=== PATIENT | female | born 1950 | race Caucasian/White ===

== ENCOUNTER → 2016-06-18 | Outpatient (CLI) | payer OTHER ==
[~2016-06-18] MED LIST: ALBU0.084 NEB; ALLO300T2 PO; ATOR1TAB PO; BACL10TA PO; CHOL50007 PO; CLON0.1T PO; CLOP75TA28 PO; DOCU-137 PO; DONE10TA37 PO; GLIP-115 PO; HCTZ25T OR; LOSA100T27 PO; LUBI8CAP4 PO; MET50T PO; METF-312 PO; MONT10TA23 PO; NIFE60TA59 PO; POTA10TA79 PO
[2016-06-18 15:31] LABS: Basophils # (auto) 0 uL; DEFINITIVE VIEW TRANSMISSION; Eosinophils # (auto) 0 uL; Eosinophils % (auto) 0.3 % (0.0-7.0); Neutrophils # (auto) 10.9 uL; Red Cell Distribution Width 16.8 % (11.6-16.0); White Blood Cell 14.3 10^3/uL (4.4-10.8)
[2016-06-18 15:36] LABS: Basophils % (auto) 0.3 % (0.0-2.0); Hematocrit 39.4 % (36.0-46.0); Hemoglobin 12.6 g/dL (12.2-16.2); Lymphocytes # (auto) 2.5 uL; Lymphocytes % (auto) 17.5 % (10.0-50.0); Mean Corpuscular Hemoglobin 22.4 pg (28.0-32.0); Mean Corpuscular Hgb Conc. 31.9 g/dL (32.0-36.0); Mean Corpuscular Volume 70.3 fL (80.0-100.0); Mean Platelet Volume 8.6 fL (7.4-10.4); Monocytes # (auto) 0.8 uL; Monocytes % (auto) 5.5 % (0.0-12.0); Neutrophils % (auto) 76.4 % (37.0-80.0); Platelet Count (auto) 406 10^3/uL (140-450)
[2016-06-18 15:45] LABS: BUN/Creatinine Ratio 17.4; Calcium 9.8 mg/dL (8.5-10.1); Potassium 3.4 mmol/L (3.5-5.1)
[2016-06-18 16:11] LABS: INR 0.99 (0.9-1.15); Partial Thromboplastin Time 27.5 sec (22.64-33.71); Prothrombin Time 10.2 sec (9.37-12.3)
== END | disposition home or self-care (01) ==
LOC: LAB 14:47
PROVIDERS: ATTEND Obstetrics & Gynecology
DX: N39.0 Urinary tract infection, site not specified (principal); M79.89 Other specified soft tissue disorders; D53.8 Other specified nutritional anemias
CPT/HCPCS: 36415; 80048; 85025; 85610; 85730

== ENCOUNTER 2016-06-21 08:06 | Day surgery (SDC) | payer OTHER ==
[~2016-06-21] VITALS: Ht 154.9 cm; Wt 74.8 kg
[2016-06-21] MEDS ORDERED: ceFAZolin 1GM/50ML D5W 50 ML IV ONE (09:48)
[2016-06-21] MEDS ORDERED: ALBUTEROL SULF 2.5 MG/0.5ML(0.5%) NEB SOLN NEB ONE (10:45)
[2016-06-21] MEDS ORDERED: ALBUTEROL SULF 2.5 MG/0.5ML(0.5%) NEB SOLN ONE (10:45)
[2016-06-21] MEDS ORDERED: VASOPRESSIN 20 UNIT/ML ONE (10:52)
[2016-06-21] MEDS ORDERED: BUPIVACAINE 0.25% INJ 50ML VIAL ONE ×2 (10:52→11:10)
[2016-06-21] MEDS ORDERED: LIDOCAINE W/ EPINEPHRINE 1 % INJ 30ML ONE ×2 (10:52→11:59)
[2016-06-21] MEDS ORDERED: ceFAZolin 1GM VL ONE (10:52)
[2016-06-21] MEDS ORDERED: CONJ ESTROGENS 0.625MG/GM VAG CRM 30GM PV ONE (11:10)
[2016-06-21] MEDS ORDERED: MIDAZOLAM HCL 1MG/1ML-2 ML VIAL ONE (11:11)
[2016-06-21] MEDS ORDERED: fentaNYL CITRATE 100 MCG/2 ML VL ONE (11:11)
[2016-06-21] MEDS ORDERED: PROPOFOL 10 MG/ML 20 ML IV ONE (11:11)
[2016-06-21] MEDS ORDERED: hydrALAZINE HCL 20 MG/ML VL IV PRN (12:15)
[2016-06-21] MEDS ORDERED: HYDROmorphone HCL 2 MG/ML VL IV PRN (12:15)
[2016-06-21] MEDS ORDERED: ONDANSETRON HCL 4 MG/2 ML VIAL IV ONE (12:15)
[2016-06-21] MEDS ORDERED: ePHEDrine SULFATE 50 MG/ML AMP IV PRN (12:15)
[2016-06-21 13:21] VITALS: BP 154/53
== END 2016-06-21 13:30 | disposition home or self-care (01) ==
LOC: SUR 08:06
PROVIDERS: ATTEND Obstetrics & Gynecology
DX: N81.10 Cystocele, unspecified (principal); J44.9 Chronic obstructive pulmonary disease, unspecified; J45.909 Unspecified asthma, uncomplicated; I10 Essential (primary) hypertension; E11.9 Type 2 diabetes mellitus without complications; F03.90 Unspecified dementia, unspecified severity, without behavioral disturbance, psychotic disturbance, mood disturbance, and anxiety; E66.9 Obesity, unspecified; F17.200 Nicotine dependence, unspecified, uncomplicated
CPT/HCPCS: 57106; 57240; 82962; 88302; 94640; J0360; J0690; J1170; J2001; J2250; J2704; J3010; J3490

== ENCOUNTER 2017-03-24 02:11 | Emergency (ER) | payer OTHER ==
[~2017-03-24] VITALS: Ht 170.2 cm; Wt 86.2 kg
[~2017-03-24 02:11] MED LIST changes: -METF-312 PO; +METF-370 PO
[2017-03-24 02:17] VITALS: BP 93/54
[2017-03-24] MEDS ORDERED: SODIUM BICARBONATE 8.4% INJ 50ML SYRINGE IV ONE (02:17)
[2017-03-24] MEDS ORDERED: DEXTROSE (50%) 50ML SYRG IV ONE (02:17)
[2017-03-24] MEDS ORDERED: CALCIUM CHLOR(10%) 100MG/ML 10ML SYRINGE IV ONE (02:17)
[2017-03-24] MEDS ORDERED: EPINEPHrine HCL 1 MG/10 ML SYRG IV ONE (02:17)
== END 2017-03-24 02:26 | disposition expired ==
LOC: EDBD 02:11 → ER 02:16
DX: I46.9 Cardiac arrest, cause unspecified (principal); I10 Essential (primary) hypertension; E11.9 Type 2 diabetes mellitus without complications; F03.90 Unspecified dementia, unspecified severity, without behavioral disturbance, psychotic disturbance, mood disturbance, and anxiety; Z88.6 Allergy status to analgesic agent
CPT/HCPCS: 31500; 82962; 92950; 99285; J0171; J7042